=== PATIENT | female | born 1940 | race Caucasian/White ===

== ENCOUNTER 2021-03-25 17:02 | Emergency (ER) | payer MEDICARE ==
[~2021-03-25] VITALS: Ht 165.1 cm; Wt 53.0 kg
--- NOTE | 2021-03-25 17:52 | NUR ---
mold checker: Pt ambulatory to room from lobby at this time.
[2021-03-25 18:11] LABS: BASOPHILS % (AUTO) 1 % (0-1); EOSINOPHILS % (AUTO) 0 % (1-7); LYMPHOCYTES % (AUTO) 16 % (22-44); MEAN CORPUSCULAR HEMOGLOBIN 30.9 pg (27.0-34.8); MEAN CORPUSCULAR HGB CONC 34.9 g/dL (32.4-35.8); MONOCYTES % (AUTO) 11 % (2-9); NEUTROPHILS % (AUTO) 73 % (42-75); PLATELET COUNT 145 x10^3/uL (130-400); RED BLOOD COUNT 4.72 x10^6/uL (3.82-5.3); RED CELL DISTRIBUTION WIDTH 13.7 % (9.6-15.2)
[2021-03-25 18:19] LABS: ALBUMIN 3.8 g/dL (3.4-5.0); ANION GAP 6 mmol/L (5-15); CHLORIDE 108 mmol/L (98-107); CREATININE 0.81 mg/dL (0.55-1.02)
--- NOTE | 2021-03-25 18:21 | NUR ---
PT TO ROOM 29 W/ C/O FEVER. PT STATES SHE WENT TO [facility] PT WAS HAVING A FEVER IN THE "101, 102, OR 103 OR SOMETHING LIKE THAT". PT STATES SHE HAS BEEN TAKING ACETAMINOPHEN. PT STATES SHE WENT TO [facility] GOT A URINE TEST AND A CXR. PT STATES TEMP WAS 101.3 AT UC AND WAS TOLD TO COME TO ED. PT RESTING ON GURNEY. NADN. MONITORS APPLIED. WARM BLANKET PROVIDED. CALL LIGHT IN REACH. ERP DR. COLÓN AT BEDSIDE FOR EVAL.
[2021-03-25 18:26] VITALS: BP 142/71
--- NOTE | 2021-03-25 18:26 | NUR ---
PT ALSO STATES INCREASE IN COUGH, CONGESTION STARTED LAST SUNDAY. Addendum: 03/25/21 at 1826 by BNICHOLS PT DENIES CP/SOB.
--- NOTE | 2021-03-25 18:33 | NUR ---
PER ERP DR. COLÓN NO NEED FOR UA SAMPLE.
--- NOTE | 2021-03-25 19:00 | NUR ---
REPORT GIVEN TO SLOANE FLOR RN.
--- NOTE | 2021-03-25 19:00 | NUR ---
RECEIVED REPORT FROM OBDULIA BARRON
[2021-03-25 19:50] LABS: RAPID INFLUENZA A Negative (Negative); RAPID INFLUENZA B Negative (Negative)
--- NOTE | 2021-03-25 20:18 | NUR ---
Patient given discharge instructions and they have confirmed that they understand the instructions. Patient ambulatory with steady gait.
== END 2021-03-25 20:26 | disposition home or self-care (01) ==
LOC: ED 19:19
DX: R50.9 Fever, unspecified (principal); Z20.822 Contact with and (suspected) exposure to COVID-19; R05 Cough; R51.9 Headache, unspecified
CPT/HCPCS: 36415; 71045; 80048; 82040; 85025; 87040; 87400; 99284; U0003; U0005